=== PATIENT | male | born 1960 | race Caucasian/White ===

== ENCOUNTER 2018-06-06 09:00 | Outpatient (RCR) | payer MEDICARE, MEDICAID | END 2018-06-07 | LOC: M OT 09:00 | PROVIDERS: ATTEND Orthopaedic Surgery | DX: Z47.89 Encounter for other orthopedic aftercare (principal); Z98.890 Other specified postprocedural states; M77.12 Lateral epicondylitis, left elbow; M75.41 Impingement syndrome of right shoulder ==

== ENCOUNTER → 2018-07-05 | Outpatient (RCR) | payer MEDICARE, MEDICAID | LOC: M OT 06-13 13:21 → M PT 06-15 08:58 | PROVIDERS: ATTEND Orthopaedic Surgery | DX: Z47.89 Encounter for other orthopedic aftercare (principal); Z98.890 Other specified postprocedural states; M77.12 Lateral epicondylitis, left elbow; M75.41 Impingement syndrome of right shoulder ==

== ENCOUNTER 2018-07-23 07:00 | Outpatient (RCR) | payer MEDICARE, MEDICAID | END 2018-08-05 | LOC: M OT 07:00 | PROVIDERS: ATTEND Orthopaedic Surgery | DX: Z47.89 Encounter for other orthopedic aftercare (principal); Z98.890 Other specified postprocedural states; M77.12 Lateral epicondylitis, left elbow; M75.41 Impingement syndrome of right shoulder ==

== ENCOUNTER 2018-10-14 21:25 | Observation (INO) | payer MEDICARE, MEDICAID ==
[~2018-10-14] VITALS: Ht 170.2 cm; Wt 93.2 kg
[~2018-10-14 21:25] MED LIST: ATORVASTATIN 20 MG TAB PO SCH; CETIRIZINE (ZyrTEC) 10 MG TAB PO SCH; MONTELUKAST 10 MG TAB PO SCH
[2018-10-14] MEDS ORDERED: OMEP10CA78 PO (21:33)
[2018-10-14] MEDS ORDERED: FENO135C6 PO (21:33)
[2018-10-14] MEDS ORDERED: AZEL0.05 OU (21:33)
[2018-10-14] MEDS ORDERED: ATOR40TA75 PO (21:33)
[2018-10-14] MEDS ORDERED: FLUTISP NARES (21:33)
[2018-10-14] MEDS ORDERED: HYDR-3713 PO (21:33)
[2018-10-14] MEDS ORDERED: LEVO100T5 PO (21:33)
[2018-10-14] MEDS ORDERED: MONT10TA2 PO (21:33)
[2018-10-14] MEDS ORDERED: ALL10TAB28 PO (21:33)
[2018-10-14] MEDS ORDERED: VASC1CAP2 PO (21:33)
[2018-10-14] MEDS ORDERED: BACL10TA8 PO (21:33)
[2018-10-14] MEDS ORDERED: ACETAMINOPHEN 500 MG TAB PO ONE (22:30)
[2018-10-14 22:58] LABS: BASO # 0.1 10^3/uL (0.0-0.2); BASO % 0.5 % (0.0-1.0); EOS # 0.3 10^3/uL (0.0-0.50); EOS % 1.7 % (0.0-3.0); HEMATOCRIT 40.6 % (42.0-52.0); HEMOGLOBIN 13.3 g/dl (13.5-17.5); LYMPH # 4.3 10^3/uL (1.5-4.5); LYMPH % 27.3 % (24.0-44.0); MEAN CORPUSCULAR HEMOGLOBIN 28.9 pg (27.0-33.0); MEAN CORPUSCULAR HGB CONC 32.8 g/dl (32.0-36.5); MEAN CORPUSCULAR VOLUME 88.3 fl (80.0-96.0); MONO # 1.5 10^3/uL (0.0-0.8); MONO % 9.7 % (0.0-5.0); NEUTROPHILS # 9.6 10^3/uL (1.8-7.7); NEUTROPHILS % 60.5 % (36.0-66.0); PLATELET COUNT, AUTOMATED 290 10^3/uL (150-450); WHITE BLOOD COUNT 15.8 10^3/uL (4.0-10.0)
[2018-10-14] MEDS ORDERED: ISOVUE-370 76% 100ML VIAL (Q9967) As Ordered ONE (23:55)
--- NOTE | 2018-10-15 00:04 | REPVR ---
EXAM: US Duplex Left Lower Extremity Veins, Limited EXAM DATE/TIME: 10/14/2018 11:06 PM CLINICAL HISTORY: 58 years old, male; Pain; Leg, upper and leg, lower; Left; Additional info: R/O dvt TECHNIQUE: Imaging protocol: Real-time Duplex ultrasound of the Left Lower Extremity with 2-D dennis scale, color Doppler flow and spectral waveform analysis. Limited exam focused on the left lower extremity veins. COMPARISON: No relevant prior studies available. FINDINGS: Left deep veins: Unremarkable. The common femoral, femoral and popliteal veins are patent without thrombus. Normal compressibility, augmentation response and Doppler waveforms. Left superficial veins: Unremarkable. Saphenofemoral junction is patent without thrombus. Soft tissues: Unremarkable. IMPRESSION: No sonographic evidence of deep vein thrombosis. Electronically signed by: Armond Maurer On 10/15/2018 00:04:05 AM
--- NOTE | 2018-10-15 00:20 | REPVR ---
EXAM: CT Angiography Chest With Contrast EXAM DATE/TIME: 10/14/2018 12:02 AM CLINICAL HISTORY: 58 years old, male; Chest pain; Type not specified; Additional info: RO pe TECHNIQUE: Imaging protocol: Axial computed tomographic angiography images of the chest with intravenous contrast using CT angiography protocol. Coronal and sagittal reformatted images were created and reviewed. 3D rendering: MIP reconstructed images were created and reviewed. Radiation optimization: All CT scans at this facility use at least one of these dose optimization techniques: automated exposure control; mA and/or kV adjustment per patient size (includes targeted exams where dose is matched to clinical indication); or iterative reconstruction. Contrast material: ISOVUE 370; Contrast volume: 75 ml; Contrast route: IV; COMPARISON: No relevant prior studies available. FINDINGS: Pulmonary arteries: Contrast opacification satisfactory. Bilateral pulmonary emboli, extending from distally from the lobar arteries on the left and segmental arteries on the right. Aorta: Unremarkable. No aneurysm or dissection. Lungs: Mild central peribronchial thickening, suggestive of airway inflammation. Mild linear stranding and groundglass, likely due to atelectasis and/or scarring. No focal consolidation. Scattered calcified granulomata. Pleural space: Unremarkable. No pneumothorax. No pleural effusion. Heart: Unremarkable. No cardiomegaly. No pericardial effusion. No convincing right heart strain at this time. Lymph nodes: Calcified mediastinal and hilar lymph nodes, consistent with prior granulomatous disease. Bones/joints: No acute osseous abnormality. Osteopenia. Degenerative changes. Soft tissues: Unremarkable. IMPRESSION: 1. Bilateral pulmonary emboli, as described above. No convincing right heart strain or pulmonary infarct at this time. 2. Additional findings, as above. Electronically signed by: Armond Maurer On 10/15/2018 00:20:32 AM
[2018-10-15 00:26] LABS: CPK CREATINE PHOSPHOKINASE 196 U/L (39-308); MAGNESIUM LEVEL 1.9 MG/DL (1.8-2.4)
[2018-10-15 00:45] LABS: CK-MB VALUE MASS < 1.0 NG/ML (<3.6); MB/CK RELATIVE INDEX 0.51 (< OR =4); TROPONIN I < 0.02 NG/ML (< 0.10)
[2018-10-15] MEDS ORDERED: APIXABAN 5 MG TAB (ELIQUIS) PO ONE (00:45)
[2018-10-15] MEDS ORDERED: ELIQ5TAB PO ×2 (01:54→10:37)
--- NOTE | 2018-10-15 01:57 | HPEPDOC ---
[facility] Medical History & Physical Date of Admission Oct 15, 2018 Date of Service: Oct 15, 2018 Primary Care Physician: Jimmy Garcia MD History and Physical CHIEF COMPLAINT: LE pain HISTORY OF PRESENT ILLNESS: Patient is a 58-year-old male with past medical history of hypothyroidism, hyperlipidemia, lower extremity blood clot presented to ER with complaints of pain in bilateral lower extremity for the past 5 days. Patient does not note any eliciting events, just noted that has gotten progressively more painful over the past few days. Patient reported having a blood clot in the legs when he was young after a football injury but stated that he did not take any blood thinners at that time. He also reports intermittent dyspnea on exertion at home but otherwise no chest pain, fever, chills, or significant SOB at rest. Denies any recent surgeries, long travels, cancers, or long periods of immobilization. He current feels well with no complaints. PAST MEDICAL HISTORY: Refer to [facility] PAST SURGICAL HISTORY: Hip surgery Bilateral hand surgery SOCIAL HISTORY: Former smoker. Social alcohol consumption and denies illicit drug use. FAMILY HISTORY: Multiple type of cancers throughout different family members. ALLERGIES: Please see below. REVIEW OF SYSTEMS: 10 point review of system negative except as stated in HPI HOME MEDICATIONS: Please see below. PHYSICAL EXAMINATION: General: No acute distress, Alert Eyes: Normal sclera, EOMI, REILLY HENT: Atraumatic, neck supple, moist mucous membranes Cardiovascular: Normal rate, normal rhythm. No murmurs appreciated. Pulmonary: Clear to auscultation b/l, no wheezing GI: Soft, nontender, nondistended Skin: Warm and dry Neuro: CN grossly intact. No focal deficits. Strengths equal b/l. Psych: oriented x 3 LABORATORY DATA: See below. IMAGING: Chest CT- IMPRESSION: 1. Bilateral pulmonary emboli, as described above. No convincing right heart strain or pulmonary infarct at this time. 2. Additional findings, as above. LE Dopplers- IMPRESSION: No sonographic evidence of deep vein thrombosis. MICROBIOLOGY: Please see below. ASSESSMENT AND PLAN: 1. b/l PE - Patient with dypsnea on exertion but otherwise very low PE risks. - HD stable, not hypoxic, does not require oxygen, no history of malignancy. - No evidence of strain on CT scan. - Would normally discharge for AC as outpatient, however, given dyspnea still present, will observe overnight. - Defer to daytime attending if want to obtain ECHO. No evidence of strain on CT and patient has been stable. - O2 support as needed. - c/w Eliquis. 2. HLD - Resume home med. 3. Hypothyroidism - resume home med. DVT ppx: SCD on Eliquis Code status: Full code Vital Signs Vital Signs Date Time Temp Pulse Resp B/P (MAP) Pulse Ox O2 Delivery O2 Flow Rate FiO2 10/14/18 21:42 18 10/14/18 21:27 98.6 91 97 Room Air Laboratory Data Labs 24H Laboratory Tests 2 10/14/18 22:40: Immature Granulocyte % (Auto) 0.3, White Blood Count 15.8H, Red Blood Count 4.60, Hemoglobin 13.3L, Hematocrit 40.6L, Mean Corpuscular Volume 88.3, Mean Corpuscular Hemoglobin 28.9, Mean Corpuscular Hemoglobin Concent 32.8, Red Cell Distribution Width 12.6, Platelet Count 290, Neutrophils (%) (Auto) 60.5, Lymphocytes (%) (Auto) 27.3, Monocytes (%) (Auto) 9.7H, Eosinophils (%) (Auto) 1.7, Basophils (%) (Auto) 0.5, Neutrophils # (Auto) 9.6H, Lymphocytes # (Auto) 4.3, Monocytes # (Auto) 1.5H, Eosinophils # (Auto) 0.3, Basophils # (Auto) 0.1, Nucleated Red Blood Cells % (auto) 0.0 10/14/18 23:10: POC Glucose (Misc Panel) 99, POC Sodium (Misc Panel) 139, POC Potassium (Misc Panel) 3.9, POC Chloride (Misc Panel) 101, POC Total CO2 (Misc Panel) 27.0, POC Blood Urea Nitrogen (Misc Panel 18, POC Ionized Calcium (Misc Panel) 5.1, POC Creatinine (Misc Panel) 1.2, POC Hematocrit (Misc Panel) 43.0 10/14/18 23:53: D-Dimer, Quantitative 2939.85H, Magnesium Level 1.9, Total Creatine Kinase 196, Creatine Kinase MB < 1.0, Creatine Kinase MB Relative Index 0.51, Troponin I < 0.02 CBC/BMP Laboratory Tests 10/14/18 22:40 Red Blood Count 4.60, Mean Corpuscular Volume 88.3, Mean Corpuscular Hemoglobin 28.9, Mean Corpuscular Hemoglobin Concent 32.8, Red Cell Distribution Width 12.6, Neutrophils (%) (Auto) 60.5, Lymphocytes (%) (Auto) 27.3, Monocytes (%) (Auto) 9.7 H, Eosinophils (%) (Auto) 1.7, Basophils (%) (Auto) 0.5, Neutrophils # (Auto) 9.6 H, Lymphocytes # (Auto) 4.3, Monocytes # (Auto) 1.5 H, Eosinophils # (Auto) 0.3, Basophils # (Auto) 0.1 Home Medications Scheduled Apixaban (Eliquis) 5 Mg Tablet, 10 MG PO BID Miscellaneous Medications Atorvastatin Calcium (Atorvastatin Calcium) 40 Mg Tablet Azelastine HCl (Azelastine HCl) 0.05% 6ML Drops Baclofen (Baclofen) 10 Mg Tablet Cetirizine HCl (Cetirizine HCl) 10 Mg Tablet Fenofibric Acid (Choline) (Fenofibric Acid) 135 Mg Capsule. Fluticasone Propionate (Fluticasone Propionate) 16 [address] [place].susp Hydrocodone/Acetaminophen (Hydrocodone-Acetamin 5-325 mg) 1 Each Tablet Icosapent Ethyl (Vascepa) 1 Gm Capsule Levothyroxine Sodium (Levothyroxine Sodium) 100 Mcg Tablet Montelukast Sodium (Montelukast Sodium) 10 Mg Tablet Omeprazole (Omeprazole) 10 Mg Capsule. Allergies Coded Allergies: No Known Allergies (Unverified , 10/14/18) A-FIB/CHADSVASC A-FIB History Current/History of A-Fib/PAF?: No LONNY HERNANDEZ MD Oct 15, 2018 01:57
[2018-10-15] MEDS ORDERED: diphenhydrAMINE 50 MG CAP PO ONE (02:00)
[2018-10-15] MEDS ORDERED: D200CAP2 PO (02:23)
[2018-10-15] MEDS ORDERED: RA T500C2 PO (02:23)
[2018-10-15 03:10] VITALS: BP 137/68
[2018-10-15 06:00] VITALS: BP 127/73
[2018-10-15] MEDS ORDERED: LEVOTHYROXINE 100MCG TABLET (0.1MG) PO SCH (06:00)
--- NOTE | 2018-10-15 07:11 | ECGEPIP ---
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
[2018-10-15 07:47] LABS: BASO # 0.1 10^3/uL (0.0-0.2); BASO % 0.4 % (0.0-1.0); EOS # 0.3 10^3/uL (0.0-0.50); EOS % 2.2 % (0.0-3.0); HEMATOCRIT 43.3 % (42.0-52.0); HEMOGLOBIN 14.4 g/dl (13.5-17.5); LYMPH # 3.5 10^3/uL (1.5-4.5); LYMPH % 25.8 % (24.0-44.0); MEAN CORPUSCULAR HEMOGLOBIN 30.1 pg (27.0-33.0); MEAN CORPUSCULAR HGB CONC 33.3 g/dl (32.0-36.5); MEAN CORPUSCULAR VOLUME 90.4 fl (80.0-96.0); MONO # 1.5 10^3/uL (0.0-0.8); NEUTROPHILS # 8.1 10^3/uL (1.8-7.7); NEUTROPHILS % 60.2 % (36.0-66.0); PLATELET COUNT, AUTOMATED 286 10^3/uL (150-450); RED BLOOD COUNT 4.79 10^6/uL (4.30-6.10); WHITE BLOOD COUNT 13.5 10^3/uL (4.0-10.0)
[2018-10-15 08:04] LABS: BLOOD UREA NITROGEN 15 MG/DL (7-18); CALCIUM LEVEL 9.5 MG/DL (8.5-10.1); CARBON DIOXIDE LEVEL 29 MEQ/L (21-32); CHLORIDE LEVEL 105 MEQ/L (98-107); GLOMERULAR FILTRATION RATE > 60.0 (>56); GLUCOSE, FASTING 93 MG/DL (70-100); MAGNESIUM LEVEL 2.2 MG/DL (1.8-2.4); POTASSIUM SERUM 3.9 MEQ/L (3.5-5.1); SODIUM LEVEL 140 MEQ/L (136-145)
[2018-10-15] MEDS ORDERED: VITAMIN D 1,000 INTERNATIONAL UNITS TABLET PO SCH (09:00)
[2018-10-15] MEDS ORDERED: FLUTICASONE PROP 0.05% NASAL SPRAY 16 GM (FLONASE) NARES SCH (09:00)
[2018-10-15] MEDS ORDERED: NORCO, ANEXSIA 5/325MG TABLET (HYDROcodone/ACETAMINOPHEN) PO SCH (09:00)
[2018-10-15] MEDS ORDERED: FENOFIBRATE 145 MG TAB (TRICOR) PO SCH (09:00)
[2018-10-15] MEDS ORDERED: BACLOFEN 10 MG TAB PO SCH (09:00)
[2018-10-15] MEDS ORDERED: APIXABAN 5 MG TAB (ELIQUIS) PO SCH (09:00)
[2018-10-15 10:00] VITALS: BP 139/71
--- NOTE | 2018-10-15 10:40 | IPNPDOC ---
Date Seen The patient was seen on 10/15/18. Progress Note SUBJECTIVE: Patient is a 58-year-old male seen on morning rounds sitting comfortably in his bed. Patient reports continued pain in his left calf that is crampy and sharp in nature. He states that the pain is worse with ambulation and has gotten better with rest and elevation but that stretching and medication does not relieve the pain. Doppler ultrasound negative for DVT in left lower extremity. He denies right LE pain and swelling. Patient also reports of left upper chest wall pain 2/10 intensity on deep inspiration that has improved since admission. Patient states that the pain on admission was upper chest wall pain bilaterally and rated as 10/10 that was reproducible on palpation. Patient states that he is experiencing shortness of breath while climbing stairs which is different than his baseline activity level and that this is concerning him. Patient reports nausea and decreased food intake the past 4 days and that he has a history of GERD and irritable bowel syndrome. He also reports sweating overnight and into the morning. Patient otherwise denies chest pain, fever, chills, nausea and vomiting, and sob at rest. OBJECTIVE PHYSICAL EXAMINATION: VITAL SIGNS: Please see below. GENERAL: Patient is sitting in bed, pleasant and comfortable. Otherwise patient denies chest pain, shortness of breath at rest, vomiting, fever, chills. He is awake, alert, oriented speaking in complete sentences in no acute distress. Patient reports increased sweating starting last night into the morning. HEENT: Moist mucous membranes, EOMI CARDIOVASCULAR: S1 S2 regular no additional heart sounds appreciated RESPIRATORY: Clear to auscultation bilaterally, no wheezing, rales or rhonchi ap preciated ABDOMINAL: Bowel sounds presentx4 abdomen soft and nontender to light or deep palpation, no rebound, rigidity, or guarding, no hepatosplenomegaly or masses appreciated EXTREMITIES: No clubbing cyanosis or edema NEUROLOGICAL: Spontaneously moves all 4 extremities, no focal deficits. PSYCHOLOGICAL: Appropriate affect LABORATORY DATA, IMAGING STUDIES, MICROBIOLOGY: Please see below. DVT prophylaxis ordered?: Maxwell ASSESSMENT AND PLAN: This is a 58-year-old male who presented with left lower extremity swelling and pain and shortness of breath on exertion. PROBLEMS: 1. b/l PE - Patient with dyspnea on exertion but otherwise very low PE risk - HD stable, not hypoxic, does not require oxygen, no history of malignancy - No evidence of strain on CT scan - O2 support as needed; has been titrate down - c/w with Eliquis 2. Left lower extremity pain and swelling - History of left lower extremity blood clot - Will provide walker for ambulation assistance 3. HLD - c/w home meds 4. Chronic back and neck pain - c/w home [place] and Baclofen 5. Hypothyroidism - c/w home Levothyroxine 6. GERD - c/w Omeprazole 7. Seasonal allergies - c/w Fluticasone and Cetirizine DISPOSITION: - Anticipate discharge home today VS, I&O, 24H, Fishbone Vital Signs/I&O Vital Signs Date Time Temp Pulse Resp B/P (MAP) Pulse Ox O2 Delivery O2 Flow Rate FiO2 10/15/18 06:00 97.9 69 18 127/73 (91) 97 10/15/18 02:46 Room Air I&O- Last 24 Hours up to 6 AM 10/15/18 06:00 Intake Total 300 ml Balance 300 ml Laboratory Data 24H LABS Laboratory Tests 2 10/14/18 22:40: Immature Granulocyte % (Auto) 0.3, White Blood Count 15.8H, Red Blood Count 4.60, Hemoglobin 13.3L, Hematocrit 40.6L, Mean Corpuscular Volume 88.3, Mean Corpuscular Hemoglobin 28.9, Mean Corpuscular Hemoglobin Concent 32.8, Red Cell Distribution Width 12.6, Platelet Count 290, Neutrophils (%) (Auto) 60.5, Lymphocytes (%) (Auto) 27.3, Monocytes (%) (Auto) 9.7H, Eosinophils (%) (Auto) 1.7, Basophils (%) (Auto) 0.5, Neutrophils # (Auto) 9.6H, Lymphocytes # (Auto) 4.3, Monocytes # (Auto) 1.5H, Eosinophils # (Auto) 0.3, Basophils # (Auto) 0.1, Nucleated Red Blood Cells % (auto) 0.0 10/14/18 23:10: POC Glucose (Misc Panel) 99, POC Sodium (Misc Panel) 139, POC Potassium (Misc Panel) 3.9, POC Chloride (Misc Panel) 101, POC Total CO2 (Misc Panel) 27.0, POC Blood Urea Nitrogen (Misc Panel 18, POC Ionized Calcium (Misc Panel) 5.1, POC Creatinine (Misc Panel) 1.2, POC Hematocrit (Misc Panel) 43.0 10/14/18 23:53: D-Dimer, Quantitative 2939.85H, Magnesium Level 1.9, Total Creatine Kinase 196, Creatine Kinase MB < 1.0, Creatine Kinase MB Relative Index 0.51, Troponin I < 0.02 10/15/18 07:20: Immature Granulocyte % (Auto) 0.4, White Blood Count 13.5H, Red Blood Count 4.79, Hemoglobin 14.4, Hematocrit 43.3, Mean Corpuscular Volume 90.4, Mean Corpuscular Hemoglobin 30.1, Mean Corpuscular Hemoglobin Concent 33.3, Red Cell Distribution Width 12.4, Platelet Count 286, Neutrophils (%) (Auto) 60.2, L ymphocytes (%) (Auto) 25.8, Monocytes (%) (Auto) 11.0H, Eosinophils (%) (Auto) 2.2, Basophils (%) (Auto) 0.4, Neutrophils # (Auto) 8.1H, Lymphocytes # (Auto) 3.5, Monocytes # (Auto) 1.5H, Eosinophils # (Auto) 0.3, Basophils # (Auto) 0.1, Nucleated Red Blood Cells % (auto) 0.0, Magnesium Level 2.2, Anion Gap 6L, Glomerular Filtration Rate > 60.0, Blood Urea Nitrogen 15, Creatinine 1.10, Sodium Level 140, Potassium Level 3.9, Chloride Level 105, Carbon Dioxide Level 29, Calcium Level 9.5 CBC/BMP Laboratory Tests 10/14/18 22:40 Red Blood Count 4.60, Mean Corpuscular Volume 88.3, Mean Corpuscular Hemoglobin 28.9, Mean Corpuscular Hemoglobin Concent 32.8, Red Cell Distribution Width 12.6, Neutrophils (%) (Auto) 60.5, Lymphocytes (%) (Auto) 27.3, Monocytes (%) (Auto) 9.7 H, Eosinophils (%) (Auto) 1.7, Basophils (%) (Auto) 0.5, Neutrophils # (Auto) 9.6 H, Lymphocytes # (Auto) 4.3, Monocytes # (Auto) 1.5 H, Eosinophils # (Auto) 0.3, Basophils # (Auto) 0.1 10/15/18 07:20 Red Blood Count 4.79, Mean Corpuscular Volume 90.4, Mean Corpuscular Hemoglobin 30.1, Mean Corpuscular Hemoglobin Concent 33.3, Red Cell Distribution Width 12.4, Neutrophils (%) (Auto) 60.2, Lymphocytes (%) (Auto) 25.8, Monocytes (%) (Auto) 11.0 H, Eosinophils (%) (Auto) 2.2, Basophils (%) (Auto) 0.4, Neutrophils # (Auto) 8.1 H, Lymphocytes # (Auto) 3.5, Monocytes # (Auto) 1.5 H, Eosinophils # (Auto) 0.3, Basophils # (Auto) 0.1, Calcium Level 9.5 GME ATTESTATION GME ATTESTATION My faculty preceptor for this patient encounter was physically present during the encounter and was fully available. All aspects of the patient interview, examination, medical decision making process, and medical care plan development were reviewed and approved by the faculty preceptor. The faculty preceptor is aware and concurs with the plan as stated in the body of this note and will attest to such by his/her cosignature. ATTENDING NOTE I, Nivia Peralta, have both independently examined this patient, including my own physical exam, as well as reviewed the documentation and edited where necessary. I have discussed in detail with the resident the findings and plan of treatment as documented by the resident and edited their note. I agree with their findings and treatment plan and have edited their documentation. I will continue to follow the patient during this hospital stay. MARY LAROSE OMS-3 Oct 15, 2018 10:40 NIVIA PERALTA MD Oct 15, 2018 12:33
--- NOTE | 2018-10-15 12:04 | DS.PDOC ---
Discharge Summary General Date of Admission Oct 14, 2018 at 21:26 Date of Discharge 10/15/2018 Discharge Summary PROCEDURES PERFORMED DURING STAY: [None]. ADMITTING DIAGNOSES / DISCHARGE DIAGNOSES: Bilateral pulmonary embolism - likely 2/2 DVT - etiology unclear Left leg pain - likely 2/2 recent left lower extremity DVT DLP Hypothyroidism Seasonal allergies Chronic arm pain 2/2 neck surgery Vitamin D deficiency GERD COMPLICATIONS/CHIEF COMPLAINT: Shortness of breath with exertion HISTORY OF PRESENT ILLNESS / HOSPITAL COURSE: Patient is a 58-year-old male with a past medical history of DLP, Hypothyroidism, Seasonal allergies, Chronic arm pain 2/2 neck surgery (follows with Neurology), Vitamin D deficiency and GERD who presented to emergency room with complaints of recent pain in his left lower extremity for 5 days. Patient's pain had progressively worsened. Patient has also reported a history of a blood clot in his leg when he was younger after a football injury. The emergency room, patient was found to have bilateral pulmonary embolisms-CT angioedematous chest. Duplex ultrasound of his lower extremities did not reveal any evidence of deep vein thrombosis. Clinically patient has improved under observation overnight. He has not required any supple of oxygen. Has been ambulating without hypoxia. Hypercoagulability workup has been collected. He has been advised to follow-up with PCP for results / determination of duration of anticoagulation. Patient still expressing some left leg discomfort, he'll be going home with a rolling walker for continued assistance for his recent left leg DVT. Patient has been advised to follow-up with his primary provider, Dr. Garcia that within 7 days. DISCHARGE MEDICATIONS: Please see below. ALLERGIES: Please see below. PHYSICAL EXAMINATION ON DISCHARGE: Vitals (See below) General: Lying in bed, no acute distress, comfortable, AAOx3 HEENT: NC, AT CVS: RRR, +S1S2 Lungs: Fair air entry b/l, -w/r/r Abdomen: Soft, ND, NT Extremities: No edema, - Calf tenderness LABORATORY DATA: Please see below. PROGNOSIS: Fair ACTIVITY: [As tolerated]. DISCHARGE PLAN: Follow up with Dr. Ramu Tellez within 7 days Remain compliant with treatment plan and medications Return to the ER if you experience any problems DISPOSITION: Home DISCHARGE CONDITION: [Stable]. TIME SPENT ON DISCHARGE: 40 minutes Vital Signs/I&Os Vital Signs Date Time Temp Pulse Resp B/P (MAP) Pulse Ox O2 Delivery O2 Flow Rate FiO2 6/10/19 11:30 16 10/15/18 10:00 97.7 76 139/71 (93) 97 10/15/18 02:46 Room Air I&O- Last 24 Hours up to 6 AM 10/15/18 06:00 Intake Total 300 ml Balance 300 ml Laboratory Data Labs 24H Laboratory Tests 2 10/14/18 22:40: Immature Granulocyte % (Auto) 0.3, White Blood Count 15.8H, Red Blood Count 4.60, Hemoglobin 13.3L, Hematocrit 40.6L, Mean Corpuscular Volume 88.3, Mean Corpuscular Hemoglobin 28.9, Mean Corpuscular Hemoglobin Concent 32.8, Red Cell Distribution Width 12.6, Platelet Count 290, Neutrophils (%) (Auto) 60.5, Lymphocytes (%) (Auto) 27.3, Monocytes (%) (Auto) 9.7H, Eosinophils (%) (Auto) 1.7, Basophils (%) (Auto) 0.5, Neutrophils # (Auto) 9.6H, Lymphocytes # (Auto) 4.3, Monocytes # (Auto) 1.5H, Eosinophils # (Auto) 0.3, Basophils # (Auto) 0.1, Nucleated Red Blood Cells % (auto) 0.0 10/14/18 23:10: POC Glucose (Misc Panel) 99, POC Sodium (Misc Panel) 139, POC Potassium (Misc Panel) 3.9, POC Chloride (Misc Panel) 101, POC Total CO2 (Misc Panel) 27.0, POC Blood Urea Nitrogen (Misc Panel 18, POC Ionized Calcium (Misc Panel) 5.1, POC Creatinine (Misc Panel) 1.2, POC Hematocrit (Misc Panel) 43.0 10/14/18 23:53: D-Dimer, Quantitative 2939.85H, Magnesium Level 1.9, Total Creatine Kinase 196, Creatine Kinase MB < 1.0, Creatine Kinase MB Relative Index 0.51, Troponin I < 0.02 10/15/18 07:20: Immature Granulocyte % (Auto) 0.4, White Blood Count 13.5H, Red Blood Count 4.79, Hemoglobin 14.4, Hematocrit 43.3, Mean Corpuscular Volume 90.4, Mean Corpuscular Hemoglobin 30.1, Mean Corpuscular Hemoglobin Concent 33.3, Red Cell Distribution Width 12.4, Platelet Count 286, Neutrophils (%) (Auto) 60.2, Lymphocytes (%) (Auto) 25.8, Monocytes (%) (Auto) 11.0H, Eosinophils (%) (Auto) 2.2, Basophils (%) (Auto) 0.4, Neutrophils # (Auto) 8.1H, Lymphocytes # (Auto) 3.5, Monocytes # (Auto) 1.5H, Eosinophils # (Auto) 0.3, Basophils # (Auto) 0.1, Nucleated Red Blood Cells % (auto) 0.0, Magnesium Level 2.2, Anion Gap 6L, Glomerular Filtration Rate > 60.0, Blood Urea Nitrogen 15, Creatinine 1.10, Sodium Level 140, Potassium Level 3.9, Chloride Level 105, Carbon Dioxide Level 29, Calcium Level 9.5 10/15/18 10:48: Erythrocyte Sedimentation Rate 40H, C-Reactive Protein, Quantitative 8.17H CBC/BMP Laboratory Tests 10/14/18 22:40 Red Blood Count 4.60, Mean Corpuscular Volume 88.3, Mean Corpuscular Hemoglobin 28.9, Mean Corpuscular Hemoglobin Concent 32.8, Red Cell Distribution Width 12.6, Neutrophils (%) (Auto) 60.5, Lymphocytes (%) (Auto) 27.3, Monocytes (%) (Auto) 9.7 H, Eosinophils (%) (Auto) 1.7, Basophils (%) (Auto) 0.5, Neutrophils # (Auto) 9.6 H, Lymphocytes # (Auto) 4.3, Monocytes # (Auto) 1.5 H, Eosinophils # (Auto) 0.3, Basophils # (Auto) 0.1 10/15/18 07:20 Red Blood Count 4.79, Mean Corpuscular Volume 90.4, Mean Corpuscular Hemoglobin 30.1, Mean Corpuscular Hemoglobin Concent 33.3, Red Cell Distribution Width 12.4, Neutrophils (%) (Auto) 60.2, Lymphocytes (%) (Auto) 25.8, Monocytes (%) (Auto) 11.0 H, Eosinophils (%) (Auto) 2.2, Basophils (%) (Auto) 0.4, Neutrophils # (Auto) 8.1 H, Lymphocytes # (Auto) 3.5, Monocytes # (Auto) 1.5 H, Eosinophils # (Auto) 0.3, Basophils # (Auto) 0.1, Calcium Level 9.5 Discharge Medications Scheduled Apixaban (Eliquis) 5 Mg Tablet, 5-10 MG PO BID take 10mg po BID x 7 days, then 5mg po BID there after Atorvastatin Calcium (Atorvastatin Calcium) 40 Mg Tablet, 40 MG PO QHS, (Reported) Azelastine HCl (Azelastine HCl) 0.05% 6ML Drops, 1 DROP OU BID, (Reported) Baclofen (Baclofen) 10 Mg Tablet, 10 MG PO BID, (Reported) Cetirizine HCl (Cetirizine HCl) 10 Mg Tablet, 10 MG PO QHS, (Reported) Cholecalciferol (Vitamin D3) (Vitamin D3) 2,000 Unit Capsule, 2,000 UNIT PO DAILY, (Reported) Fenofibric Acid (Choline) (Fenofibric Acid) 135 Mg Capsule.dr, 135 MG PO DAILY, (Reported) Fluticasone Propionate (Fluticasone Propionate) 16 Gm [place].susp, 1 SPR NARES BID, (Reported) Hydrocodone/Acetaminophen (Hydrocodone-Acetamin 5-325 mg) 1 Each Tablet, 1 TAB PO BID, (Reported) Icosapent Ethyl (Vascepa) 1 Gm Capsule, 1 GM PO BID, (Reported) Levothyroxine Sodium (Levothyroxine Sodium) 100 Mcg Tablet, 100 MCG PO QAM, (Reported) Montelukast Sodium (Montelukast Sodium) 10 Mg Tablet, 10 MG PO QHS, (Reported) Omeprazole (Omeprazole) 10 Mg Capsule.dr, 10 MG PO QPM, (Reported) Turmeric Root Extract (Turmeric) 500 Mg Capsule, 500 MG PO QPM, (Reported) Allergies Coded Allergies: No Known Allergies (Unverified , 10/14/18) ALVARADO PERALTA MD Oct 15, 2018 12:04
[2018-10-16] MEDS ORDERED: LEVOTHYROXINE 100MCG TABLET (0.1MG) PO SCH (09:00)
[2018-10-16 10:34] LABS: DRVV SCREEN 81.1 SEC
[2018-10-16 10:46] LABS: DRVV CONFIRM 57.4 SEC; LUPUS CONFIRM RATIO 1.5
[2018-10-16 10:47] LABS: NORMALIZED RATIO 1.33 (0.00-1.20)
[2018-10-16] MEDS ORDERED: OMEPRAZOLE 20 MG CAP PO SCH (21:00)
== END 2018-10-15 15:15 | disposition home or self-care (01) ==
LOC: M ED 21:25 → M ED INP 21:26 → M MSPAV 10-15 03:11
PROVIDERS: ADMIT Student in an Organized Health Care Education/Training Program; ATTEND Internal Medicine
DX: I26.99 Other pulmonary embolism without acute cor pulmonale (principal); M79.605 Pain in left leg; E78.49 Other hyperlipidemia; E55.9 Vitamin D deficiency, unspecified; K21.9 Gastro-esophageal reflux disease without esophagitis; E03.9 Hypothyroidism, unspecified; Z79.899 Other long term (current) drug therapy; Z87.891 Personal history of nicotine dependence; R06.09 Other forms of dyspnea
CPT/HCPCS: 36415; 71275; 80047; 80048; 81240; 81241; 82550; 82553; 83090; 83735; 84484; 85025; 85300; 85301; 85302; 85305; 85306; 85379; 85598; 85613; 85652; 85730; 86038; 86140; 86147; 86235; 86256; 93005; 93971; 99285; G0378; Q9967

== ENCOUNTER → 2019-05-02 | Outpatient (CLI) | payer MEDICARE, MEDICAID ==
[~2019-05-02] MED LIST changes: +ALL10TAB29 PO; +ATOR40TA75 PO; -ATORVASTATIN 20 MG TAB PO SCH; +AZEL0.05 OU; +BACL10TA8 PO; -CETIRIZINE (ZyrTEC) 10 MG TAB PO SCH; +CHOLPOW39 XX; +D200CAP2 PO; +ELIQ5TAB PO; +FENO135C6 PO; +FLUTISP NARES; +HYDR-3713 PO; +LEVO100T5 PO; +MONT10TA2 PO; -MONTELUKAST 10 MG TAB PO SCH; +OMEP10CA78 PO; +OMEP40CA97 PO; +RA T500C2 PO; +TRIL135C6 PO; +VASC1CAP2 PO
--- NOTE | 2019-05-02 12:08 | REP ---
Clinical: Left lower extremity pain. Comparison: 10/14/2018 . Technique: Nolan scale and color Doppler evaluation using linear high frequency transducer. Findings: Ultrasound examination of the left lower extremity deep venous structures from the common femoral vein to the popliteal vein demonstrates normal compressibility flow and wave patterns in response to respiration and augmentation. There is no evidence for deep venous thrombosis. 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 Impression: No evidence for deep venous thrombosis. Electronically Signed by Hari Abraham MD 05/02/2019 10:08 A
== END ==
LOC: M RAD 09:38
PROVIDERS: ATTEND Internal Medicine Hematology
DX: Z86.718 Personal history of other venous thrombosis and embolism (principal)

== ENCOUNTER 2019-10-30 11:00 | Outpatient (RCR) | payer MEDICARE, MEDICAID ==
[~2019-10-30 11:00] MED LIST changes: -MONT10TA2 PO; +MONT10TA4 PO
== END 2019-11-05 ==
LOC: M PT 11:00
PROVIDERS: ATTEND Family Medicine
DX: M54.2 Cervicalgia (principal)

== ENCOUNTER 2019-11-14 13:30 | Emergency (ER) | payer MEDICARE, MEDICAID ==
[~2019-11-14] VITALS: Ht 170.2 cm; Wt 91.9 kg
[2019-11-14] MEDS ORDERED: AUGM875T28 PO (14:28)
[2019-11-14 14:45] VITALS: BP 116/74
== END 2019-11-14 14:46 | disposition home or self-care (01) ==
LOC: M ED 13:30
DX: H65.20 Chronic serous otitis media, unspecified ear (principal); E78.5 Hyperlipidemia, unspecified; J45.909 Unspecified asthma, uncomplicated; K58.9 Irritable bowel syndrome, unspecified; E03.9 Hypothyroidism, unspecified; M54.5 Low back pain; F90.9 Attention-deficit hyperactivity disorder, unspecified type; Z79.01 Long term (current) use of anticoagulants; Z79.899 Other long term (current) drug therapy

== ENCOUNTER 2019-11-18 11:00 | Outpatient (RCR) | payer MEDICARE, MEDICAID ==
[~2019-11-18 11:00] MED LIST changes: -ALL10TAB29 PO; +AUGM875T28 PO; +CETI-24 PO
== END 2019-12-06 ==
LOC: M PT 11:00
PROVIDERS: ATTEND Family Medicine
DX: M54.2 Cervicalgia (principal)

== ENCOUNTER → 2020-01-21 | Outpatient (CLI) | payer MEDICARE, MEDICAID ==
--- NOTE | 2020-02-06 09:59 | REP ---
LUMBAR SPINE SERIES: 01/21/20 CLINICAL: Low back pain. TECHNIQUE: AP, lateral, bilateral oblique and sunrise views of the lumbosacral spine. FINDINGS: Alignment and lordosis maintained. No acute fracture/compression injury or subluxation. Moderate multilevel degenerative changes include endplate sclerosis, osteophytosis, hypertrophic facet changes and disc space narrowing. Findings most pronounced at L5-S1 and L4-5. No evidence for spondylolysis or spondylolisthesis. IMPRESSION: Moderate multilevel degenerative spondylosis primarily involving L4-5 and L5-S1. MTDD
--- NOTE | 2020-02-06 13:30 | REP ---
RIGHT HIP SERIES: 01/21/2020 CLINICAL: Right hip pain. TECHNIQUE: Neutral and frog lateral views of the right hip. FINDINGS: Increased sclerosis to the acetabulum with joint space narrowing and subtle marginal spurring is appreciated. No acute fracture or dislocation. No obvious periarticular calcifications or loose bodies. IMPRESSION: 1. Mild/early moderate arthritic changes. MTDD
== END ==
LOC: M RAD 16:02
PROVIDERS: ATTEND Family Medicine
DX: M47.896 Other spondylosis, lumbar region (principal); M25.78 Osteophyte, vertebrae; M25.551 Pain in right hip; M47.897 Other spondylosis, lumbosacral region

== ENCOUNTER 2020-03-03 11:04 | Outpatient (RCR) | payer MEDICARE, MEDICAID | END 2020-03-07 | LOC: M OT 11:04 | PROVIDERS: ATTEND Orthopaedic Surgery | DX: M79.641 Pain in right hand (principal); M79.642 Pain in left hand ==

== ENCOUNTER 2020-04-01 11:17 | Outpatient (RCR) | payer MEDICARE, MEDICAID ==
[~2020-04-01 11:17] MED LIST changes: -MONT10TA4 PO; +MONT5TAB2 PO
== END 2020-04-06 ==
LOC: M PT 11:17
PROVIDERS: ATTEND Psychiatry & Neurology Neurology
DX: M54.2 Cervicalgia (principal); M25.541 Pain in joints of right hand; M25.542 Pain in joints of left hand

== ENCOUNTER 2020-05-06 13:45 | Outpatient (RCR) | payer MEDICARE, MEDICAID | END 2020-05-07 | LOC: M PT 13:45 | PROVIDERS: ATTEND Psychiatry & Neurology Neurology | DX: Z51.89 Encounter for other specified aftercare (principal); M54.2 Cervicalgia ==

== ENCOUNTER 2020-06-04 10:15 | Outpatient (RCR) | payer MEDICARE, MEDICAID | END 2020-06-07 | LOC: M PT 10:15 | PROVIDERS: ATTEND Orthopaedic Surgery | DX: Z51.89 Encounter for other specified aftercare (principal); M54.5 Low back pain ==

== ENCOUNTER → 2020-11-05 | Outpatient (CLI) | payer MEDICARE, MEDICAID ==
[~2020-11-05] MED LIST changes: +MONT10TA10 PO; -MONT5TAB2 PO; +OMEP40CA4 PO; -OMEP40CA97 PO
--- NOTE | 2020-11-05 14:39 | REPVR ---
PROCEDURE INFORMATION: Exam: CT Cervical Spine Without Contrast Exam date and time: 11/05/2020 11:58 AM Age: 60 years old Clinical indication: Neck pain; Prior surgery; Surgery date: 6+ months TECHNIQUE: Imaging protocol: Computed tomography images of the cervical spine without contrast. Radiation optimization: All CT scans at this facility use at least one of these dose optimization techniques: automated exposure control; mA and/or kV adjustment per patient size (includes targeted exams where dose is matched to clinical indication); or iterative reconstruction. COMPARISON: [facility] Spine, Cervical 10/22/2020 12:58 PM FINDINGS: Bones/joints: The patient is status post C5-7 fusion with anterior plate and screw fixation. The surgical hardware is in place and intact. There is significant demineralization of the C6 and C7 vertebra. No acute fracture is identified. Alignment is anatomic. Discs/Spinal canal/Neural foramina: There is no definite severe spinal canal stenosis. Severe left and moderate right neural foraminal narrowing is present at C3-C4. There is moderate/severe right neural foraminal narrowing at C4-C5 due to uncinate spurring. Lungs: Lung apices are normal. Soft tissues: Unremarkable. IMPRESSION: 1. No acute abnormality. 2. Chronic findings as discussed above. Electronically signed by: Cruz Hope On 11/05/2020 14:39:23 PM
== END ==
LOC: M PLAIMG 11:04
DX: M54.2 Cervicalgia (principal)